=== PATIENT | male | born 1955 | race Caucasian/White ===

== ENCOUNTER 2016-04-30 08:28 | Emergency (ER) | payer OTHER, MEDICARE, MEDICAID ==
[2016-04-30 08:29] VITALS: BMI 28.1
[2016-04-30 08:58] VITALS: BP 171/79; PULSE 61; TEMP 97.8
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
== END 2016-04-30 11:31 | disposition home or self-care (01) ==
LOC: ED 08:28 → EDMC 11:31
DX: S16.1XXA Strain of muscle, fascia and tendon at neck level, initial encounter (principal); V49.40XA Driver injured in collision with unspecified motor vehicles in traffic accident, initial encounter; J44.9 Chronic obstructive pulmonary disease, unspecified; F17.200 Nicotine dependence, unspecified, uncomplicated
CPT/HCPCS: 72050; 99283